=== PATIENT | male | born 1960 | race Caucasian/White ===

== ENCOUNTER → 2023-09-13 13:44 | Outpatient (BNVA) | payer OTHER, SELFPAY | PROVIDERS: PCP Nurse Practitioner Family; Visit Provider Nurse Practitioner Family | DX: F43.21 Adjustment disorder with depressed mood (principal); M19.90 Unspecified osteoarthritis, unspecified site; E55.9 Vitamin D deficiency, unspecified; R73.03 Prediabetes; M10.9 Gout, unspecified; Z13.6 Encounter for screening for cardiovascular disorders; Z12.5 Encounter for screening for malignant neoplasm of prostate; I10 Essential (primary) hypertension | CPT/HCPCS: 80053; 80061; 81003; 82306; 83036; 84443; 84550; 85025; G0103 ==

== ENCOUNTER → 2024-04-14 10:34 | Outpatient (BNVA) | payer OTHER, SELFPAY | PROVIDERS: PCP Nurse Practitioner Family; Visit Provider Nurse Practitioner Family | DX: J22 Unspecified acute lower respiratory infection (principal); M10.9 Gout, unspecified | CPT/HCPCS: 71046; 80053; 84550; 85025 ==

== ENCOUNTER → 2024-04-16 11:09 | Outpatient (BNVA) | payer OTHER, SELFPAY | PROVIDERS: PCP Nurse Practitioner Family; Visit Provider Nurse Practitioner Family | DX: I10 Essential (primary) hypertension (principal); R79.89 Other specified abnormal findings of blood chemistry | CPT/HCPCS: 81003; 82570; 84156 ==

== ENCOUNTER → 2025-06-11 15:31 | Outpatient (BNVA) | payer OTHER, SELFPAY | PROVIDERS: PCP Nurse Practitioner Family; Visit Provider Nurse Practitioner Family | DX: I10 Essential (primary) hypertension (principal); E55.9 Vitamin D deficiency, unspecified; Z13.6 Encounter for screening for cardiovascular disorders; Z86.0100 Personal history of colon polyps, unspecified; R79.89 Other specified abnormal findings of blood chemistry; M10.9 Gout, unspecified | CPT/HCPCS: 80053; 80061; 81003; 82306; 83036; 84443; 84550; 85025; G0103 ==